=== PATIENT | male | born 1995 | race Two or more races ===

== ENCOUNTER 2024-08-25 11:38 | Emergency (ER) | payer OTHER ==
[~2024-08-25] VITALS: Ht 175.3 cm; Wt 81.6 kg
[2024-08-25] MEDS ORDERED: KETOROLAC TROMETHAMINE 60 MG VIAL IM ONE ×2 (14:30→14:41)
[2024-08-25] MEDS ORDERED: ORPHENADRINE CITRATE 30 MG/ML AMPUL IM ONE (14:30)
[2024-08-25] MEDS ORDERED: NORFLEX100MG PO (14:31)
[2024-08-25] MEDS ORDERED: ORPHENADRINE CITRATE 30 MG/ML AMPUL ONE (14:39)
== END 2024-08-25 14:56 | disposition home or self-care (01) ==
LOC: ER 11:41
DX: F45.8 Other somatoform disorders (principal); M62.830 Muscle spasm of back

== ENCOUNTER → 2025-06-13 | Emergency (ER) | payer OTHER ==
[~2025-06-13] VITALS: Ht 177.8 cm; Wt 86.2 kg
[~2025-06-13] MED LIST: CARAFATE1 GM PO; FAMOTIDINE/PF 20 MG/2 ML VIAL IV PUSH STA; FAMOTIDINE/PF 20 MG/2 ML VIAL ONE; NORFLEX100MG PO; PEPCID40 MG PO; SUCRALFATE 1 G TABLET PO STA
== END | disposition home or self-care (01) ==
LOC: ER 03:07
DX: K29.60 Other gastritis without bleeding (principal)